=== PATIENT | female | born 1940 | race Caucasian/White ===

== ENCOUNTER → 2021-05-01 | Outpatient (CLI) | payer MEDICARE, BC ==
[~2021-05-01] MED LIST: IODIXANOL 320 MG/ML INFUS..BTL 100ML IV ONE; IODIXANOL 320 MG/ML INFUS..BTL 50ML IV ONE
[2021-05-01 09:40] LABS: BASOPHILS % (AUTO) 0.2 % (0-1); EOSINOPHILS # (AUTO) 0.2 X10'3 (0-0.9); EOSINOPHILS % (AUTO) 2.5 % (0-6); HEMOGLOBIN 14.1 g/dl (12.0-16.0); LYMPHOCYTES # (AUTO) 1.3 X10'3 (1.1-4.8); LYMPHOCYTES % (AUTO) 21.2 % (21-51); MEAN CORPUSCULAR HEMOGLOBIN 30.2 PG (27.0-31.0); MEAN CORPUSCULAR HGB CONC 33.6 g/dL (33.0-36.5); MEAN CORPUSCULAR VOLUME 90.1 FL (78-98); MEAN PLATELET VOLUME 8.7 FL (7.4-10.4); MONOCYTES # (AUTO) 0.6 X10'3 (0-0.9); MONOCYTES % (AUTO) 9.5 % (2-12); NEUTROPHILS # (AUTO) 4.2 X10'3 (1.8-7.7); NEUTROPHILS % (AUTO) 66.6 % (42-75); PLATELET COUNT 245 X10'3 (140-440); RED BLOOD COUNT 4.66 X10'6 (4.20-5.60); RED CELL DISTRIBUTION WIDTH 14.5 % (11.5-14.5); WHITE BLOOD COUNT 6.3 X10'3 (4.5-11.0)
[2021-05-01 09:43] LABS: APTT 27 SECONDS (22-32)
[2021-05-01 09:55] LABS: ALANINE AMINOTRANSFERASE 18 U/L (12-78); ALBUMIN 3.4 G/DL (3.4-5.0); ALBUMIN/GLOBULIN RATIO 0.8 (1.1-1.5); ALKALINE PHOSPHATASE 64 IU/L (46-116); ANION GAP 7 (8-16); ASPARTATE AMINO TRANSFERASE 17 U/L (10-37); BILIRUBIN,TOTAL 0.4 MG/DL (0.1-1.0); BLOOD UREA NITROGEN 15 MG/DL (7-18); BUN/CREATININE RATIO 15.3 (6.6-38.0); CALCIUM 9.3 MG/DL (8.5-10.1); CHLORIDE 105 MMOL/L (99-107); CREATININE 0.98 MG/DL (0.40-0.90); GLUCOSE 111 MG/DL (70-104); POTASSIUM 4.3 MMOL/L (3.5-5.1); SODIUM 140 MMOL/L (135-145); TOTAL CARBON DIOXIDE 28.4 MMOL/L (24-32); TOTAL PROTEIN 7.8 G/DL (6.4-8.2); eGFR 55 ML/MIN
== END | disposition home or self-care (01) ==
LOC: RAD 09:04
PROVIDERS: ATTEND Internal Medicine Cardiovascular Disease
DX: J98.11 Atelectasis (principal); K42.9 Umbilical hernia without obstruction or gangrene; M47.819 Spondylosis without myelopathy or radiculopathy, site unspecified; K57.30 Diverticulosis of large intestine without perforation or abscess without bleeding; K76.89 Other specified diseases of liver; I70.0 Atherosclerosis of aorta; J47.9 Bronchiectasis, uncomplicated; K44.9 Diaphragmatic hernia without obstruction or gangrene; I31.3 Pericardial effusion (noninflammatory); I08.0 Rheumatic disorders of both mitral and aortic valves; I25.10 Atherosclerotic heart disease of native coronary artery without angina pectoris; M85.88 Other specified disorders of bone density and structure, other site; Z20.822 Contact with and (suspected) exposure to COVID-19
CPT/HCPCS: 36415; 71046; 71275; 74174; 80053; 85025; 85610; 85730; 87635; 94010; 94727; 94729; C9803; Q9967

== ENCOUNTER 2021-05-30 05:59 | Inpatient (IN) | payer MEDICARE, BC ==
[2021-05-24 14:24] LABS: BASOPHILS % (AUTO) 0.3 % (0-1); EOSINOPHILS # (AUTO) 0.2 X10'3 (0-0.9); EOSINOPHILS % (AUTO) 2.8 % (0-6); LYMPHOCYTES # (AUTO) 1.4 X10'3 (1.1-4.8); LYMPHOCYTES % (AUTO) 18.9 % (21-51); MEAN CORPUSCULAR HEMOGLOBIN 30.1 PG (27.0-31.0); MEAN CORPUSCULAR HGB CONC 33.2 g/dL (33.0-36.5); MEAN CORPUSCULAR VOLUME 90.4 FL (78-98); MEAN PLATELET VOLUME 9.3 FL (7.4-10.4); MONOCYTES # (AUTO) 0.8 X10'3 (0-0.9); MONOCYTES % (AUTO) 10.6 % (2-12); NEUTROPHILS # (AUTO) 4.8 X10'3 (1.8-7.7); NEUTROPHILS % (AUTO) 67.4 % (42-75); PRE OP HEMATOCRIT 41.5 % (35.0-45.0); PRE OP HEMOGLOBIN 13.8 g/dL (12.0-16.0); PRE OP PLATELET COUNT 235 X10'3 (140-440); RED BLOOD COUNT 4.59 X10'6 (4.20-5.60); RED CELL DISTRIBUTION WIDTH 14.3 % (11.5-14.5)
[2021-05-24 14:33] LABS: PRE OP INR 1.1 INR; PRE OP PROTIME 10.9 SECONDS (9.0-12.0)
[2021-05-24 14:36] LABS: BLOOD UREA NITROGEN 21 MG/DL (7-18); BUN/CREATININE RATIO 23.1 (6.6-38.0); CHLORIDE 104 MMOL/L (99-107); CREATININE 0.91 MG/DL (0.40-0.90); PRE OP ANION GAP 5 (8-16); PRE OP POTASSIUM 4.2 MMOL/L (3.4-5.1); PRE OP SODIUM 139 MMOL/L (135-145); TOTAL CARBON DIOXIDE 29.7 MMOL/L (24-32)
[2021-05-24 14:37] LABS: ALBUMIN 3.4 G/DL (3.4-5.0); ALBUMIN/GLOBULIN RATIO 0.8 (1.1-1.5); ALKALINE PHOSPHATASE 78 IU/L (46-116); CALCIUM 9.1 MG/DL (8.5-10.1); PRE OP ALT 18 U/L (30-65); PRE OP AST 11 U/L (10-37); PRE OP BILIRUB, TOTAL 0.2 MG/DL (0.0-1.0); TOTAL PROTEIN 7.6 G/DL (6.4-8.2); eGFR 60 ML/MIN
[2021-05-24 14:41] LABS: PRE OP GLUCOSE 84 MG/DL (70-104)
[~2021-05-30] VITALS: Ht 165.1 cm; Wt 95.3 kg
[2021-05-30] VITALS (22 sets, daily range): BP systolic 119–173; BP diastolic 47–81
[~2021-05-30 05:59] MED LIST changes: -IODIXANOL 320 MG/ML INFUS..BTL 100ML IV ONE; -IODIXANOL 320 MG/ML INFUS..BTL 50ML IV ONE; +NO HOME MEDS; +aspirin 325mg tablet PO ONE; +cefazolin/dext.iso 2gm/50ml 50 ML IV ONE; +famotidine 20mg tablet PO ONE; +ondansetron/PF 4mg/2ml inj IV PRN; +ringers solution, lacted 1,000 ML IV SCH
[2021-05-30] MEDS ORDERED: protamine sulfate 10mg/ml inj. ONE (06:37)
[2021-05-30 07:32] LABS: CLARITY,URINE SLIGHTLY CLOUDY (Clear); COLOR,URINE YELLOW (Yellow); GLUCOSE, URINE NEGATIVE (Neg); KETONES,URINE NEGATIVE (Neg); LEUKOCYTE ESTERASE ,URINE MODERATE (Neg); NITRITES, URINE NEGATIVE (Neg); OCCULT BLOOD,URINE TRACE-INTACT (Neg); PROTEIN,URINE NEGATIVE (Neg); UROBILINOGEN,URINE 0.2 E.U/dL (0.2-1.0)
[2021-05-30 07:35] LABS: UA COLLECTION TYPE VOIDED
[2021-05-30 07:40] LABS: SQUAMOUS EPITHELIAL CELL,UR MODERATE /LPF (FEW)
[2021-05-30 07:41] LABS: MUCUS STRANDS MODERATE /LPF (Neg)
[2021-05-30 07:42] LABS: HYALINE CASTS 0-3 /LPF (NEGATIVE)
[2021-05-30 07:43] LABS: WBC CLUMPS,URINE MANY /HPF (NEGATIVE); WBC,URINE 50-100 /HPF (0-4)
[2021-05-30 07:44] LABS: BACTERIA,URINE 1+ /HPF (Neg); TRANSITIONAL EPI CELLS,URINE FEW /HPF
[2021-05-30 07:45] LABS: RBC,URINE 0-2 /HPF (0-2)
[2021-05-30] MEDS ORDERED: iohexol 350 MG/ML 50ML vial IV ONE (08:36)
[2021-05-30] MEDS ORDERED: heparin 1,000 UNITS/NS 500ml 1,500 ML ONE (08:36)
[2021-05-30] MEDS ORDERED: LIDOcaine 1% (10mg/ml)w/preservative injection 20ml MDV ONE (08:36)
[2021-05-30] MEDS ORDERED: iohexol 350MG/ML 100ml bottle IV ONE (08:36)
[2021-05-30] MEDS ORDERED: sevoflurane 250ml liquid IH ONE (08:50)
[2021-05-30] MEDS ORDERED: midazolam 1 mg/ML 2ml injection ONE (08:54)
[2021-05-30] MEDS ORDERED: fentaNYL/PF 50MCG/1 ML 2ML syringe ONE (08:54)
[2021-05-30] MEDS ORDERED: heparin 1,000unit/ml 10ml vial 10 ML ONE (09:54)
[2021-05-30] MEDS ORDERED: propofol inj 20 ML IV ONE (09:54)
--- NOTE | 2021-05-30 10:13 | NUR ---
Received from OR via , accompanied by Anesthesiologist DR. MA and report given by Anesthesiolgist AND OR NURSE. PT ARRIVED AWAKE ON 10 L OF 02. DENIES PAIN AND NAUSEA. LEFT WRIST ART LINE INTACT. LR/MARINA/NIPRIDE RUNNING TO RIGHT HAND 18 G IV. MARINA TURNED OFF ONCE PT WAS CONNECTED TO MONITOR. VSS. NERUO CHECKS WITHIN NORMAL LIMITS. 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 STRONG PULSES PALPABLE BILATERALLY. 2 GROIN SITES C/D/I WITH NO BLEEDING OR SWELLING NOTED. WILL CONTINUE TO MONITOR. Addendum: 05/30/21 at 1045 by Rosalee Matthews RN Amended: Links added.
[2021-05-30] MEDS ORDERED: magnesium 4gm in 100ml NS 100 ML IV PRN (10:20)
[2021-05-30] MEDS ORDERED: proCHLORperazine 10 MG/2 ml inj IV PRN ×2 (10:20)
[2021-05-30] MEDS ORDERED: magnesium 2GM in 50ml NS 50 ML IV PRN (10:20)
[2021-05-30] MEDS ORDERED: ALPRAZolam 0.25mg tablet PO PRN (10:20)
[2021-05-30] MEDS ORDERED: morphine 4 MG/ML inj SYRINge IV PRN (10:20)
[2021-05-30] MEDS ORDERED: pantoprazole 40mg Tablet.DR PO PRN (10:20)
[2021-05-30] MEDS ORDERED: docusate sod 100mg capsule PO PRN (10:20)
[2021-05-30] MEDS ORDERED: diphenhydrAMINE 25mg capsule PO PRN (10:20)
[2021-05-30] MEDS ORDERED: ondansetron/PF 4mg/2ml inj IV PRN ×2 (10:20)
[2021-05-30] MEDS ORDERED: potassium CL 10mEq/100ml bag 100 ML IV PRN (10:20)
[2021-05-30] MEDS ORDERED: meperidine/PF 25mg/ml syringe IV PRN ×3 (10:20)
[2021-05-30] MEDS ORDERED: labetalol 20mg/4ml (5mg/ml) syringe IV PRN (10:20)
[2021-05-30] MEDS ORDERED: ringers solution, lacted 1,000 ML IV SCH (10:20)
[2021-05-30] MEDS ORDERED: potassium Cl 20 mEq SR tablet PO PRN (10:20)
[2021-05-30] MEDS ORDERED: potassium Cl 40MEQ/1/2NS 520ml 520 ML IV PRN (10:20)
[2021-05-30] MEDS ORDERED: morphine 2 MG/ML inj. syringe IV PRN (10:20)
[2021-05-30] MEDS: hydrALAZINE 20mg/ml inj. IV PRN ×2 (10:48→11:31)
--- NOTE | 2021-05-30 10:53 | NUR ---
NIPRIDE TURNED OFF AND APRESOLINE GIVEN TO MANAGE ELEVATED BP PER EMAR. WILL CONTINUE TO MONITOR. Addendum: 05/30/21 at 1054 by Rosalee Matthews RN Amended: Links added.
--- NOTE | 2021-05-30 11:58 | NUR ---
BILATERAL GROIN DRESSINGS C/D/I, NO SWELLING OR BLEEDING NOTED. NEURO ASSESSMENT COMPLETED. 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 BILATERAL PEDAL PULSES STRONG. VSS. GAVE SECOND DOSE OF APRESOLINE TO GET SBP UNDER 140 ORDERED. WILL CONTINUE TO MONITOR. Addendum: 05/30/21 at 1200 by Rosalee Matthews RN Amended: Links added.
--- NOTE | 2021-05-30 12:43 | NUR ---
Report called to receiving nurse ITALO ZARAGOZA. Transferred via BED WITH Belongings AND CPAP. Special Issues communicated to receiving nurse. NURSE AT BEDSIDE TO ASSUME CARE OF PT. BED IN LOW POSITION, CALL LIGHT IN REACH. Addendum: 05/30/21 at 1259 by Rosalee Matthews RN Amended: Links added.
--- NOTE | 2021-05-30 12:43 | NUR ---
PT HAS MET D/C CRITERIA FROM [facility]ERY. ALL DRIPS REMOVED AND PT TRANSFERRED TO ROOM ON LR. PT WAS ABLE TO URINATE. ART LINE D/C'D AND PRESSURE APPLIED TO SITE. NO BLEEDING NOTED. Addendum: 05/30/21 at 1312 by Rosalee Matthews RN Amended: Links added.
[2021-05-30] MEDS: acetaminophen 325mg tablet PO PRN ×2 (14:38→19:22)
[2021-05-30] MEDS: ceFAZolin 1GM/D5W- ADD-VANTAGE 50 ML IV SCH ×2 (16:17→23:50)
[2021-05-30] MEDS: sod chloride 0.9% 10ml flush syringe IV SCH (16:20)
[2021-05-30] MEDS: phenylephrine 50 MG in NS 250ml IVPB IV SCH ×2 (18:00→23:00)
[2021-05-30] MEDS: normal saline 1000ml 1,000 ML IV SCH ×2 (18:00→20:20)
[2021-05-30] MEDS: nitroPRUSSIDE (NIPRIDE) (200MCG/ML) 100ML Drip IV SCH ×2 (18:00→19:30)
--- NOTE | 2021-05-30 18:00 | NUR ---
Patient in room PCU 3009. I have received report from Glenys PUCKETT and had the opportunity to ask questions and assume patient care.
--- NOTE | 2021-05-30 18:47 | NUR ---
Problems reprioritized. Patient report given, questions answered & plan of care reviewed with ITALO Martinez.
[2021-05-30] MEDS: vancomycin/NS 1 GM ADD-VANTAGE 250 ML IV SCH (19:23)
--- NOTE | 2021-05-30 22:00 | NUR ---
PATIENTS BP 109/42 LEFT ARM, 106/42 RIGHT-GAVE NURSING BOLUS OF 250 ML NS AND RESTARTED NS AT 100 ML/HR TO KEEP MAP ABOVE 60. RETOOK BP AFTER BOLUS, BP RIGHT ARM WAS 126/50, MAP 75. WILL LET DAY SHIFTRN KNOW ABOUT SOFT PRESSURES AND CONTINUE TO MONITORFOR HYPOTENSION. ESTEFANÍA PUCKETT
[2021-05-31] MEDS: sod chloride 0.9% 10ml flush syringe IV SCH ×2 (00:09→08:05)
[2021-05-31 02:00] VITALS: BP 145/53
[2021-05-31] MEDS: acetaminophen 325mg tablet PO PRN ×2 (02:47→07:58)
[2021-05-31 05:49] LABS: BASOPHILS % (AUTO) 0.2 % (0-1); EOSINOPHILS # (AUTO) 0.1 X10'3 (0-0.9); EOSINOPHILS % (AUTO) 0.6 % (0-6); HEMATOCRIT 39.5 % (35.0-45.0); HEMOGLOBIN 13.2 g/dl (12.0-16.0); LYMPHOCYTES # (AUTO) 0.7 X10'3 (1.1-4.8); LYMPHOCYTES % (AUTO) 6.2 % (21-51); MEAN CORPUSCULAR HGB CONC 33.5 g/dL (33.0-36.5); MEAN CORPUSCULAR VOLUME 89.4 FL (78-98); MEAN PLATELET VOLUME 8.7 FL (7.4-10.4); MONOCYTES % (AUTO) 9.5 % (2-12); NEUTROPHILS % (AUTO) 83.5 % (42-75); PLATELET COUNT 188 X10'3 (140-440); RED BLOOD COUNT 4.42 X10'6 (4.20-5.60); RED CELL DISTRIBUTION WIDTH 14.1 % (11.5-14.5); WHITE BLOOD COUNT 10.8 X10'3 (4.5-11.0)
[2021-05-31 06:00] VITALS: BP 154/68
--- NOTE | 2021-05-31 06:00 | NUR ---
Problems reprioritized. Patient report given, questions answered & plan of care reviewed with JENNIFER RN'S.
[2021-05-31] MEDS: normal saline 1000ml 1,000 ML IV SCH (06:20)
[2021-05-31 06:24] LABS: ALANINE AMINOTRANSFERASE 16 U/L (12-78); ALBUMIN 2.9 G/DL (3.4-5.0); ALBUMIN/GLOBULIN RATIO 0.9 (1.1-1.5); ALKALINE PHOSPHATASE 55 IU/L (46-116); ANION GAP 11 (8-16); ASPARTATE AMINO TRANSFERASE 23 U/L (10-37); BILIRUBIN,TOTAL 0.4 MG/DL (0.1-1.0); BLOOD UREA NITROGEN 17 MG/DL (7-18); BUN/CREATININE RATIO 22.4 (6.6-38.0); CALCIUM 8.8 MG/DL (8.5-10.1); CHLORIDE 106 MMOL/L (99-107); CREATININE 0.76 MG/DL (0.40-0.90); GLUCOSE 127 MG/DL (70-104); POTASSIUM 3.9 MMOL/L (3.5-5.1); SODIUM 140 MMOL/L (135-145); TOTAL CARBON DIOXIDE 23.1 MMOL/L (24-32); TOTAL PROTEIN 6.2 G/DL (6.4-8.2); eGFR 74 ML/MIN
[2021-05-31] MEDS ORDERED: ASPI81TA53 PO (07:34)
[2021-05-31] MEDS: vancomycin/NS 1 GM ADD-VANTAGE 250 ML IV SCH (07:54)
[2021-05-31] MEDS: ceFAZolin 1GM/D5W- ADD-VANTAGE 50 ML IV SCH (08:00)
[2021-05-31] MEDS ORDERED: aspirin 81mg tab.chew PO SCH (08:30)
[2021-05-31 11:00] VITALS: BP 130/69
--- NOTE | 2021-05-31 13:15 | NUR ---
Pt stable for d/c per MD orders. All d/c ppwk was reviewed with patient and patient spouse. Reinterated the importance of follow up appts. All verbalized understanding. Tele box # 8 was removed and given to telecommunications manager monitor. All personal belongings were sent with patient. Pt was wheeled out in W/C by nursing staff to private vehicle where was waiting. New RX sent to [facility] off of [address].
== END 2021-05-31 13:20 | disposition home or self-care (01) | DRG 266 ==
LOC: UNDOADMIN 05:59 → PAS IN 05:59 → EDSTATUS 09:30 → PAS IN 10:22 → PCU 3S 14:15 → PAS IN 14:15
PROVIDERS: ADMIT Internal Medicine Cardiovascular Disease; ATTEND Internal Medicine Cardiovascular Disease
PROC: B41D1ZZ Fluoroscopy of Aorta and Bilateral Lower Extremity Arteries using Low Osmolar Contrast (ICD-10-PCS; 2021-05-30)
PROC: X2RF332 Replacement of Aortic Valve using Zooplastic Tissue, Rapid Deployment Technique, Percutaneous Approach, New Technology Group 2 (ICD-10-PCS; principal; 2021-05-30 08:50)
PROC: 5A09357 Assistance with Respiratory Ventilation, Less than 24 Consecutive Hours, Continuous Positive Airway Pressure (ICD-10-PCS; 2021-05-31)
DX: I35.0 Nonrheumatic aortic (valve) stenosis (principal); I50.33 Acute on chronic diastolic (congestive) heart failure; I11.0 Hypertensive heart disease with heart failure; G47.30 Sleep apnea, unspecified; I25.10 Atherosclerotic heart disease of native coronary artery without angina pectoris; Z79.82 Long term (current) use of aspirin; Z90.710 Acquired absence of both cervix and uterus; Z00.6 Encounter for examination for normal comparison and control in clinical research program; Z90.722 Acquired absence of ovaries, bilateral
CPT/HCPCS: 33361; 36415; 71045; 76937; 80053; 81001; 82948; 83735; 83880; 85025; 85347; 85610; 85730; 86885; 86900; 86901; 86920; 87081; 87088; 93005; 93308; A4618; A6258; A6449; C1760; C1769; C1894; G0378; J0360; J0690; J1644; J2250; J2370; J2405; J2704; J2720; J3010; J3370; J3490; J7040; J7050; J7120; Q9967; U0003; U0005